=== PATIENT | male | born 1955 | race Caucasian/White ===

== ENCOUNTER → 2020-09-20 | Outpatient (CLI) | payer OTHER ==
--- NOTE | 2020-09-20 13:28 | RAD ---
INDICATION: Reason: AAA SCREENING / Spl. Instructions: / History: COMPARISON: None. FINDINGS: Focused ultrasound obtained of the abdominal aorta including spectral Doppler. From proximal to distal the abdominal aorta measures 23 x 26 mm. 21 x 28 mm. 21 x 19 mm. Calcific ath erosclerosis is seen. The common iliac arteries measure approximately 13 mm. IMPRESSION: * No abdominal aortic aneurysm is seen. Electronically signed by: Richardson Munroe MD (09/20/2020 1:26 PM) [id number]
== END ==
LOC: US 10:27
PROVIDERS: ATTEND Internal Medicine
DX: I71.4 Abdominal aortic aneurysm, without rupture (principal); I70.0 Atherosclerosis of aorta
CPT/HCPCS: 76770